=== PATIENT | male | born 1950 | race Caucasian/White ===

== ENCOUNTER 2018-03-18 08:07 | Day surgery (SDC) | payer MEDICARE, OTHER ==
[2018-03-18] MEDS ORDERED: Lactated Ringers 1,000 ML IV SCH (08:15)
[2018-03-18] MEDS ORDERED: Propofol 200 MG/20 ML SDV IV ONE (09:00)
--- NOTE | 2018-03-18 09:38 | PCM.OPNOTE ---
- General Post-Op/Procedure Note Date of Surgery/Procedure: 03/18/18 Operative Procedure(s): c scope Findings: scattered diverticuli Pre Op Diagnosis: + cologuard Post-Op Diagnosis: diverticulosis Anesthesia Technique: LORENE Primary Surgeon: Jamey Peter Anesthesia Provider: Maximino Mitchell Pathology: none Complications: None Condition: Good Free Text/Narrative:: see dictation
[2018-03-18 10:42] VITALS: BP 138/81
--- NOTE | 2018-03-18 11:19 | OR ---
DATE OF OPERATION: 03/18/2018 SURGEON: Jamey Peter MD PROCEDURE PERFORMED: Colonoscopy. PREOPERATIVE DIAGNOSIS: Positive Cologuard test. POSTOPERATIVE DIAGNOSIS: Diverticulosis of the large intestine. INDICATIONS FOR PROCEDURE: This is a 67-year-old white male referred with a positive Cologuard test finding. He is completely asymptomatic. He was offered and accepted colonoscopy. DESCRIPTION OF PROCEDURE: After an excellent IV sedation was administered, digital rectal exam was performed. No marked abnormality was noted. The flexible colonoscope was inserted and advanced to the cecum without difficulty. The prep was excellent. The following findings were noted: Ascending colon, scattered diverticula. Transverse colon, scattered diverticula. Descending colon, scattered diverticula. Sigmoid, scattered diverticula. Rectum, unremarkable. Colon was deflated. Scope was removed. RECOMMENDATIONS: Repeat scope in 10 years. /[id number] /MODL
== END 2018-03-18 10:34 | disposition home or self-care (01) ==
LOC: FB.SDS 08:07
PROVIDERS: ATTEND Surgery
DX: R19.5 Other fecal abnormalities (principal); K57.30 Diverticulosis of large intestine without perforation or abscess without bleeding; E11.9 Type 2 diabetes mellitus without complications; E78.00 Pure hypercholesterolemia, unspecified; I10 Essential (primary) hypertension; Z79.84 Long term (current) use of oral hypoglycemic drugs; Z79.899 Other long term (current) drug therapy
CPT/HCPCS: 00812; 45378; 82962; J2704; J7120